=== PATIENT | male | born 1985 | race Caucasian/White ===

== ENCOUNTER 2017-07-27 07:13 | Emergency (ER) | payer OTHER ==
[~2017-07-27] VITALS: Ht 185.4 cm; Wt 123.0 kg
[~2017-07-27 07:13] MED LIST: Z.0.NO CURRENT MEDS
[2017-07-27 07:16] VITALS: BP 153/93; PULSE 71; RESP 16; TEMP 97.5; O2SAT 96
[2017-07-27] MEDS ORDERED: MORPHINE SULFATE 4 MG/ML INJ IV ONE (07:45)
[2017-07-27] MEDS ORDERED: MORPHINE SULFATE 2 MG/ML SYRINGE IV ONE (07:45)
[2017-07-27] MEDS ORDERED: diphenhydrAMINE HCL 50 MG/ML VIAL IV PUSH ONE (07:45)
[2017-07-27] MEDS ORDERED: SODIUM CHLOR 0.9% 1000 ML INJ 1,000 ML IV ONE (07:45)
[2017-07-27] MEDS ORDERED: PROCHLORPERAZINE INJ 10 MG/2 ML VIAL IV PUSH ONE (07:45)
[2017-07-27] MEDS ORDERED: KETOROLAC TROMETHAMINE 30 MG/ML (IVP) VIAL IV PUSH ONE (08:00)
[2017-07-27 08:12] LABS: BILIRUBIN, URINE NEG (NEG); BLOOD, URINE LARGE (NEG); GLUCOSE,URINE NEG (NEG); KETONE, URINE NEG (NEG); NITRITE,URINE NEG (NEG); URINE COLOR YELLOW (YELLW/STRAW); URINE LEUKOCYTE ESTERASE NEG (NEG)
--- NOTE | 2017-07-27 08:13 | RADRPT ---
EXAM DATE: 07/27/2017 8:05 AM EDT AGE/SEX: 32 years / Male INDICATIONS: Right flank pain. CLINICAL DATA: This is the patient's initial encounter. Patient reports that signs and symptoms have been present for 1 day and indicates a pain score of 10/10. MEDICAL/SURGICAL HISTORY: None. None. RADIATION DOSE: 23.01 CTDI (mGy) COMPARISON: No prior exams available for comparison. TECHNIQUE: Multiple contiguous axial images were obtained through the abdomen. Images were obtained using multiple row detector helical technique. Using automated exposure control and adjustment of the mA and/or kV according to patient size, radiation dose was kept as low as reasonably achievable to o btain optimal diagnostic quality images. DICOM format image data is available electronically for rev iew and comparison. FINDINGS: LOWER LUNGS: The visualized lower lungs are clear. LIVER: The liver has a homogeneous density without space-occupying lesion. There is no dilation of t he biliary tree. SPLEEN: Homogeneous density without enlargement. PANCREAS: Unremarkable without mass or calcification. KIDNEYS: There is a 4 mm calcified calculus at the right UVJ with associated mild right hydrouretero nephrosis. There is an additional 3 mm calcified calculus in the inferior pole of the right kidney. T here is also a 2 mm calcified calyceal calculus in the superior pole of the left kidney. ADRENAL GLANDS: Unremarkable. AORTA: Lani-aneurysmal. BOWEL/MESENTERY: The bowel loops are grossly unremarkable. The cecum and sigmoid colon have a artis l configuration. ABDOMINAL WALL: Intact. RETROPERITONEUM: No evidence of adenopathy in the retrocrural, para-aortic, or deep pelvic regions. BLADDER: Decompressed without radiopaque bladder calculi. REPRODUCTIVE: No abnormal masses or calcifications seen. BONY STRUCTURES: Unremarkable. CONCLUSION: 1. 4 mm calcified calculus at the right UVJ with associated mild right hydroureteronephrosis. 2. Additional 3 mm calyceal calculus in the inferior pole the right kidney and 2 mm calyceal calculu s in the superior pole the left kidney. Electronically signed by: Joao Dale MD 07/27/2017 8:12 AM EDT
[2017-07-27 08:26] LABS: BACTERIA, URINE RARE /hpf; SQUAMOUS EPITHELIAL CELL URINE 0-3 /hpf (0-5)
[2017-07-27] MEDS ORDERED: TAMSULOSIN HCL 0.4 MG CAP PO ONE (08:30)
[2017-07-27] MEDS ORDERED: PROM25TA10 PO (08:58)
[2017-07-27] MEDS ORDERED: PERC5TAB12 PO (08:58)
[2017-07-27] MEDS ORDERED: IBUP1TAB7 PO (08:58)
[2017-07-27] MEDS ORDERED: TAMS5CAP PO (08:58)
--- NOTE | 2017-07-27 08:58 | PD ---
HPI . Flank pain Chief Complaint: Flank/Kidney Pain Time Seen by Provider: 07:31 Travel History International Travel<30 days: No Contact w/Intl Traveler<30days: No Traveled to known affect area: No History of Present Illness HPI Patient presents with a chief complaint of right flank pain. Onset was this morning at 6 AM. Pain is rated 10/10. It is associated with nausea and diaphoresis. He has had no previous similar history. There are no modifying factors. PFSH Past Medical History Medical History: Denies Significant Hx Diminished Hearing: No Tetanus Vaccination: > 5 Years Influenza Vaccination: No Past Surgical History Surgical History: No Previous Surgery Social History Alcohol Use: Yes (VERY LIGHT SOCIAL) Tobacco Use: No Substance Use: No Allergies-Medications (Allergen,Severity, Reaction): Coded Allergies: codeine (Unverified Allergy, Mild, UNKNOWN, 07/27/17) Reported Meds & Prescriptions Reported Meds & Active Scripts Active Flomax (Tamsulosin HCl) 0.4 Mg Cap 0.4 Mg PO HS Ibuprofen 800 Mg Tab 800 Mg PO Q8H PRN Phenergan (Promethazine HCl) 25 Mg Tablet 25 Mg PO Q6H PRN Percocet (Oxycodone-Acetaminophen) 5-325 mg Tab 1 Tab PO Q4H PRN Review of Systems Except as stated in HPI: all other systems reviewed are Neg Physical Exam Narrative GENERAL: This patient has a typical appearance of a patient with a kidney stone. He is having difficulty being still. He is pale and diaphoretic. He is in obvious pain. SKIN: Normal color and turgor. HEAD: Normocephalic/atraumatic. EYES: Pupils are equal. Extraocular movements are intact. NECK: Normal range of motion. Supple. CARDIOVASCULAR: Regular rate and rhythm. RESPIRATORY: Nonlabored respirations. Normal sats. ABDOMEN: Soft and nontender. : Right CVA tenderness. MUSCULOSKELETAL: Atraumatic. Normal muscle tone. NEUROLOGICAL: A and O 3. Nonfocal. PSYCHIATRIC: Appropriate mood and affect. Data Data Last Documented VS Vital Signs Date Time Temp Pulse Resp B/P (MAP) Pulse Ox O2 Delivery O2 Flow Rate FiO2 07/27/17 07:16 97.5 71 16 153/93 (113) 96 Orders Orders ^ Saline Lock (07/27/17 07:32) Diphenhydramine Inj (Benadryl Inj) (07/27/17 07:45) Prochlorperazine Inj (Compazine Inj) (07/27/17 07:45) Sodium Chlor 0.9% 1000 Ml Inj (Ns 1000 M (07/27/17 07:45) Morphine Inj (Morphine Inj) (07/27/17 07:45) Urinalysis - C+S If Indicated (07/27/17 07:33) Ct Abd/Pel W/O Iv Contrast (07/27/17 07:33) Morphine Inj (Morphine Inj) (07/27/17 07:45) Ketorolac Inj (Toradol Inj) (07/27/17 08:00) Tamsulosin (Flomax) (07/27/17 08:30) Labs Laboratory Tests Test 07/27/17 07:45 Urine Collection Type CLEAN CATCH Urine Color YELLOW Urine Turbidity CLEAR Urine pH 5.0 Urine Specific [place] GREATER/EQUAL 1.030 Urine Protein TRACE mg/dL Urine Glucose (UA) NEG mg/dL Urine Ketones NEG mg/dL Urine Occult Blood LARGE Urine Nitrite NEG Urine Bilirubin NEG Urine Urobilinogen 0.2 MG/DL Urine Leukocyte Esterase NEG Urine RBC 25-49 /hpf Urine WBC 3-5 /hpf Urine Squamous Epithelial Cells 0-3 /hpf Urine Bacteria RARE /hpf Microscopic Urinalysis Comment CULT NOT INDICATED MDM Medical Decision Making Medical Screen Exam Complete: Yes Emergency Medical Condition: Yes Differential Diagnosis Differential diagnosis of flank pain includes but is not limited to kidney stone , pyelonephritis, musculoskeletal pain, PE, AAA Narrative Course This patient presents with the acute onset of right flank pain. His physical exam is typical of a patient with a kidney stone. An IV was started and he was given IV Compazine, Benadryl and morphine. He reported no significant relief with this. He was then given Toradol. Toradol has helped. He has also had a dose of Flomax. Last Impressions Abdomen/Pelvis CT 07/27/17 0733 Signed Impressions: CONCLUSION: 1. 4 mm calcified calculus at the right UVJ with associated mild right hydrour eteronephrosis. 2. Additional 3 mm calyceal calculus in the inferior pole the right kidney and 2 mm calyceal calculus in the superior pole the left kidney. UA shows blood. [facility] has been queried and reviewed. He will be discharged home with prescriptions for Percocet, ibuprofen, Phenergan , Flomax. He will be given a referral to urology. Diagnosis Primary Impression: Flank pain Additional Impression: Kidney stone Referrals: Nicanor Sawyer MD 2 days Urologist call for appointment Patient Instructions: General Instructions, Narcotic given in the ED, Kidney Stones (ED), How to Strain Your Urine (ED) Departure Forms: Work Release, Enter return to work date: Jul 29, 2017 Tests/Procedures Med/Other Pt SpecificInfo: Prescription(s) given Scripts Tamsulosin (Flomax) 0.4 Mg Cap 0.4 MG PO HS for Manage Prostate Problems, #30 CAP 0 Refills Prov: Sabine Mccullough MD 07/27/17 Ibuprofen (Ibuprofen) 800 Mg Tab 800 MG PO Q8H Y for Pain/Inflammation, #60 TAB 0 Refills Prov: Sabine Mccullough MD 07/27/17 Promethazine (Phenergan) 25 Mg Tablet 25 MG PO Q6H Y for NAUSEA OR VOMITING, #12 TAB 0 Refills Prov: Sabine Mccullough MD 07/27/17 Oxycodone-Acetaminophen (Percocet) 5-325 mg Tab 1 TAB PO Q4H Y for PAIN, #12 TAB 0 Refills Prov: Sabine Mccullough MD 07/27/17 Disposition: 01 DISCHARGE HOME Condition: Stable Sabine Mccullough MD Jul 27, 2017 08:58
[2017-07-27 09:15] VITALS: BP 154/79
== END 2017-07-27 09:37 | disposition home or self-care (01) ==
LOC: PHED 07:13
DX: N13.2 Hydronephrosis with renal and ureteral calculous obstruction (principal)
CPT/HCPCS: 74176; 81001; 96361; 96374; 96375; 99284; J0780; J1200; J1885; J2270; J7030